=== PATIENT | female | born 1990 | race Caucasian/White ===

== ENCOUNTER 2017-05-06 16:30 | Emergency (ER) | payer MEDICAID ==
[2017-05-07 01:26] LABS: CHOLESTEROL/HDL RATIO 3.2; MAGNESIUM 1.9 mg/dL (1.8-2.4); PHOSPHOROUS 4.3 mg/dL (2.5-4.9)
[2017-05-07 01:29] LABS: T3 TOTAL 0.78 ng/mL
[2017-05-07 01:50] LABS: FREE THYROXINE INDEX 2.6 ug/dL (1.4-4.5); T4(THYROXINE) 7.1 ug/dL (4.7-13.3)
[2017-05-07 01:51] LABS: FREE T4 1.01 ng/dL (0.76-1.46)
[2017-05-07] MEDS ORDERED: CARDIZEM30 MG PO (07:18)
[2017-05-07] MEDS ORDERED: DEPAKOTE ER500 MG PO (07:18)
[2017-05-07] MEDS ORDERED: VIS25 PO (07:19)
[2017-05-07] MEDS ORDERED: SEROQUEL50 M1 PO (07:19)
[2017-05-07] MEDS ORDERED: BENZTROPINE MESY1 MG PO (07:22)
[2017-05-07] MEDS ORDERED: DEPAKOTE500 MG PO (07:23)
== END 2017-05-06 17:16 | disposition left against medical advice (07) ==
LOC: ED 16:30
PROVIDERS: Family Medicine
DX: Z53.21 Procedure and treatment not carried out due to patient leaving prior to being seen by health care provider (principal)
CPT/HCPCS: 84439; J2060

== ENCOUNTER 2017-05-06 17:16 | Inpatient (IN) | payer MEDICAID ==
[~2017-05-06] VITALS: Ht 157.5 cm; Wt 56.1 kg
[2017-05-06 18:47] LABS: BASOPHIL % 0.3 % (0-2); PLATELET COUNT 241 x10^3mcL (130-400); RED CELL DISTRIBUTION WIDTH 12.3 % (11.5-14.5)
[2017-05-06 18:52] LABS: CARBON DIOXIDE 27.5 mmol/L (21-32); CHLORIDE SERUM 104 mmol/L (98-107); CREATININE SERUM 0.7 mg/dL (0.6-1.0); GFR1 > 60 mL/min; GLUCOSE SERUM 77 mg/dL (74-106); POTASSIUM SERUM 3.9 mmol/L (3.5-5.1); SODIUM SERUM 140 mmol/L (136-145)
[2017-05-06 18:55] LABS: ALBUMIN 3.4 g/dL (3.4-5.0); ALKALINE PHOSPHATASE 66 U/L (46-116); ALT/SGPT 34 U/L (14-59); AST/SGOT 24 U/L (15-37); BILIRUBIN TOTAL 0.34 mg/dL (0.20-1.00); CHOLESTEROL 173 mg/dL (<200); TOTAL PROTEIN, SERUM 7.2 g/dL (6.4-8.2)
[2017-05-06 19:22] LABS: AMPHETAMINE QUAL UR NONE DETECTED (NEG <=1000)
[2017-05-07] MEDS ORDERED: DEPAKOTE ER500 MG PO (07:18)
[2017-05-07] MEDS ORDERED: CARDIZEM30 MG PO (07:18)
[2017-05-07] MEDS ORDERED: VIS25 PO (07:19)
[2017-05-07] MEDS ORDERED: SEROQUEL50 M1 PO (07:19)
[2017-05-07] MEDS ORDERED: BENZTROPINE MESY1 MG PO (07:22)
[2017-05-07] MEDS ORDERED: DEPAKOTE500 MG PO (07:23)
[2017-05-07 10:36] VITALS: BP 99/65
[2017-05-07 13:16] LABS: MAGNESIUM 2.1 mg/dL (1.8-2.4); PHOSPHOROUS 4.7 mg/dL (2.5-4.9)
[2017-05-07 13:20] LABS: T3 TOTAL 0.69 ng/mL
[2017-05-07 13:27] LABS: FREE T4 0.98 ng/dL (0.76-1.46); FREE THYROXINE INDEX 2.9 ug/dL (1.4-4.5); T4(THYROXINE) 7.1 ug/dL (4.7-13.3)
[2017-05-07 14:00] VITALS: BP 109/43
[2017-05-07 18:03] VITALS: BP 105/60
[2017-05-07 21:00] LABS: microscopic required? YES; urine erythrocyte 3+ (NEGATIVE)
[2017-05-07 22:01] VITALS: BP 103/60
[2017-05-08 06:03] VITALS: BP 102/58
[2017-05-08 06:19] LABS: CALCIUM 8.4 mg/dL (8.5-10.1); CARBON DIOXIDE 26.5 mmol/L (21-32); CHLORIDE SERUM 107 mmol/L (98-107); CREATININE SERUM 0.7 mg/dL (0.6-1.0); GFR1 > 60 mL/min; GLUCOSE SERUM 92 mg/dL (74-106); POTASSIUM SERUM 3.9 mmol/L (3.5-5.1); SODIUM SERUM 143 mmol/L (136-145)
[2017-05-08 10:04] VITALS: BP 106/60
[2017-05-08 21:00] VITALS: BP 111/44
[2017-05-09 06:29] VITALS: BP 118/51
[2017-05-09 06:30] LABS: CALCIUM 8.9 mg/dL (8.5-10.1); CARBON DIOXIDE 28.1 mmol/L (21-32); CHLORIDE SERUM 106 mmol/L (98-107); CREATININE SERUM 0.7 mg/dL (0.6-1.0); GFR1 > 60 mL/min; GLUCOSE SERUM 91 mg/dL (74-106); POTASSIUM SERUM 4.4 mmol/L (3.5-5.1); SODIUM SERUM 140 mmol/L (136-145)
[2017-05-09 13:53] VITALS: BP 118/70
[2017-05-09 21:02] VITALS: BP 121/69
[2017-05-10 13:01] VITALS: BP 113/68
[2017-05-10 20:42] VITALS: BP 106/64
[2017-05-10 23:57] VITALS: BP 115/73
[2017-05-11 03:54] VITALS: BP 119/48
[2017-05-11 05:33] LABS: BASOPHIL % 0.4 % (0-2); PLATELET COUNT 223 x10^3mcL (130-400); RED CELL DISTRIBUTION WIDTH 12.6 % (11.5-14.5)
[2017-05-11 05:36] LABS: CALCIUM 8.5 mg/dL (8.5-10.1); CARBON DIOXIDE 26.7 mmol/L (21-32); CHLORIDE SERUM 105 mmol/L (98-107); CREATININE SERUM 0.6 mg/dL (0.6-1.0); GFR1 > 60 mL/min; GLUCOSE SERUM 90 mg/dL (74-106); MAGNESIUM 1.7 mg/dL (1.8-2.4); POTASSIUM SERUM 3.7 mmol/L (3.5-5.1); SODIUM SERUM 138 mmol/L (136-145)
[2017-05-11 07:40] VITALS: BP 118/80
[2017-05-11 12:00] VITALS: BP 101/68
[2017-05-11 16:00] VITALS: BP 111/55
[2017-05-11 19:52] VITALS: BP 115/82
[2017-05-12] VITALS (7 sets, daily range): BP systolic 103–117; BP diastolic 59–76
[2017-05-13 03:35] VITALS: BP 106/70
[2017-05-13 08:27] VITALS: BP 108/64
[2017-05-13 11:55] VITALS: BP 105/63
[2017-05-13 16:24] VITALS: BP 114/70
[2017-05-13 20:00] VITALS: BP 102/65
[2017-05-13 23:50] VITALS: BP 105/71
[2017-05-14 03:34] VITALS: BP 117/73
[2017-05-14 07:15] VITALS: BP 122/63
[2017-05-14 11:00] VITALS: BP 118/74
[2017-05-14 15:10] VITALS: BP 123/81
[2017-05-14 19:20] VITALS: BP 116/72
[2017-05-14 23:50] VITALS: BP 109/72
[2017-05-15] VITALS (7 sets, daily range): BP systolic 117–139; BP diastolic 69–89
[2017-05-15 11:58] LABS: BASOPHIL % 0.3 % (0-2); PLATELET COUNT 319 x10^3mcL (130-400); RED CELL DISTRIBUTION WIDTH 12.4 % (11.5-14.5)
[2017-05-15 12:19] LABS: CALCIUM 8.9 mg/dL (8.5-10.1); CARBON DIOXIDE 24.8 mmol/L (21-32); CHLORIDE SERUM 104 mmol/L (98-107); CREATININE SERUM 0.7 mg/dL (0.6-1.0); GFR1 > 60 mL/min; GLUCOSE SERUM 103 mg/dL (74-106); POTASSIUM SERUM 4.1 mmol/L (3.5-5.1); SODIUM SERUM 139 mmol/L (136-145)
[2017-05-15 12:38] LABS: AMPHETAMINE QUAL UR NONE DETECTED (NEG <=1000)
[2017-05-15] MEDS ORDERED: KLO0.5 PO (13:14)
[2017-05-15] MEDS ORDERED: ABILIFY10 M2 PO (13:15)
[2017-05-15] MEDS ORDERED: GEODON20 M1 IM (13:15)
[2017-05-15] MEDS ORDERED: SERO100 PO (13:15)
[2017-05-16] VITALS (7 sets, daily range): BP systolic 109–131; BP diastolic 71–91
[2017-05-17 03:53] VITALS: BP 127/77
[2017-05-17 08:00] VITALS: BP 118/72
[2017-05-17 12:00] VITALS: BP 118/73
[2017-05-17 16:11] VITALS: BP 104/69
[2017-05-17 19:50] VITALS: BP 104/66
[2017-05-17 23:57] VITALS: BP 109/64
[2017-05-18 04:25] VITALS: BP 116/75
[2017-05-18 07:35] VITALS: BP 107/63
[2017-05-18 11:42] VITALS: BP 107/62
[2017-05-18 15:34] VITALS: BP 102/58
[2017-05-18 19:20] VITALS: BP 113/66
[2017-05-18 23:10] VITALS: BP 112/61
[2017-05-19 03:35] VITALS: BP 111/61
[2017-05-19 08:00] VITALS: BP 113/71
[2017-05-19 12:00] VITALS: BP 117/74
[2017-05-19 16:00] VITALS: BP 109/71
[2017-05-19 19:30] VITALS: BP 113/68
[2017-05-19 23:52] VITALS: BP 118/64
[2017-05-20 03:44] VITALS: BP 115/66
[2017-05-20 07:45] VITALS: BP 125/60
[2017-05-20 11:37] VITALS: BP 118/72
[2017-05-20 15:38] VITALS: BP 114/68
[2017-05-20 19:30] VITALS: BP 119/70
[2017-05-21 03:35] VITALS: BP 96/60
[2017-05-21 07:53] VITALS: BP 101/66
[2017-05-21 11:05] VITALS: BP 121/74
[2017-05-21 16:01] VITALS: BP 116/82
[2017-05-21 19:42] VITALS: BP 110/64
[2017-05-21 23:39] VITALS: BP 112/70
[2017-05-22 08:00] VITALS: BP 98/58
[2017-05-22 11:21] VITALS: BP 114/70
[2017-05-22 16:11] VITALS: BP 111/67
[2017-05-22 23:53] VITALS: BP 112/54
[2017-05-23 03:48] VITALS: BP 108/55
[2017-05-23 07:20] VITALS: BP 96/54
[2017-05-23 11:15] VITALS: BP 111/66
[2017-05-23 19:20] VITALS: BP 114/57
[2017-05-23 23:18] VITALS: BP 106/69
[2017-05-24 03:25] VITALS: BP 106/67
[2017-05-24 07:52] VITALS: BP 118/71
[2017-05-24 12:31] VITALS: BP 106/60
[2017-05-24 15:48] VITALS: BP 109/61
[2017-05-24 19:15] VITALS: BP 104/59
[2017-05-24 23:13] VITALS: BP 101/54
[2017-05-25 03:47] VITALS: BP 98/55
[2017-05-25 07:20] VITALS: BP 108/70
[2017-05-25 12:05] VITALS: BP 107/65
[2017-05-25 16:03] VITALS: BP 117/64
[2017-05-25 19:05] VITALS: BP 102/62
[2017-05-25 23:54] VITALS: BP 92/52
[2017-05-26 03:17] VITALS: BP 116/65
[2017-05-26 08:00] VITALS: BP 106/75
[2017-05-26 12:29] VITALS: BP 114/60
[2017-05-26 15:19] VITALS: BP 114/58
[2017-05-26 19:40] VITALS: BP 108/79
[2017-05-26 23:46] VITALS: BP 109/63
[2017-05-27 03:06] VITALS: BP 98/55
[2017-05-27 07:15] VITALS: BP 103/66
[2017-05-27 12:55] VITALS: BP 136/85
[2017-05-27 15:00] VITALS: BP 111/71
[2017-05-27 19:27] VITALS: BP 98/39
[2017-05-28 05:59] VITALS: BP 114/74
[2017-05-28 07:15] VITALS: BP 114/74
[2017-05-28 19:45] VITALS: BP 116/73
[2017-05-29 09:09] VITALS: BP 120/79
[2017-05-29 15:45] VITALS: BP 116/62
[2017-05-29 19:40] VITALS: BP 132/85
[2017-05-30 00:06] VITALS: BP 118/82
[2017-05-30 04:05] VITALS: BP 130/85
[2017-05-30 07:30] VITALS: BP 134/65
[2017-05-30 12:50] VITALS: BP 125/76
[2017-05-30 16:00] VITALS: BP 115/68
[2017-05-31 08:06] VITALS: BP 122/85
[2017-05-31 12:03] VITALS: BP 114/75
[2017-05-31 16:28] VITALS: BP 113/70
[2017-05-31 19:30] VITALS: BP 111/74
[2017-06-01 00:50] VITALS: BP 111/77
[2017-06-01 03:52] VITALS: BP 103/67
[2017-06-01 08:00] VITALS: BP 129/64
[2017-06-01 11:19] VITALS: BP 106/64
[2017-06-01 16:40] VITALS: BP 117/81
[2017-06-01 20:00] VITALS: BP 119/72
[2017-06-02 07:10] VITALS: BP 120/87
[2017-06-02 11:20] VITALS: BP 114/70
[2017-06-02 23:46] VITALS: BP 119/81
[2017-06-03 03:49] VITALS: BP 134/87
[2017-06-03 09:41] VITALS: BP 126/75
[2017-06-03 16:08] VITALS: BP 82/63
[2017-06-03 19:15] VITALS: BP 130/90
[2017-06-03 23:15] VITALS: BP 132/82
[2017-06-04 03:57] VITALS: BP 123/80
[2017-06-04 09:13] VITALS: Ht 157.5 cm; Wt 56.1 kg
[2017-06-04] MEDS ORDERED: COL100 PO (10:06)
[2017-06-04] MEDS ORDERED: COG1 PO (10:06)
[2017-06-04] MEDS ORDERED: BEN25 PO (10:06)
[2017-06-04] MEDS ORDERED: TYL325 PO (10:06)
[2017-06-04] MEDS ORDERED: VIS25 PO (10:06)
[2017-06-04] MEDS ORDERED: DIVALPROEX SOD500 M2 PO (10:06)
[2017-06-04 10:38] VITALS: BP 101/53
[2017-06-04 10:39] VITALS: BP 101/53
== END 2017-06-04 13:40 | disposition home or self-care (01) | DRG 750 ==
LOC: ED 17:16 → DU 21:22 → IC 21:22 → DU 05-07 08:14 → MU 05-10 10:56 → IC 05-10 20:45
PROVIDERS: Specialist; Student in an Organized Health Care Education/Training Program; ADMIT Family Medicine
DX: F25.0 Schizoaffective disorder, bipolar type (principal); N17.0 Acute kidney failure with tubular necrosis; G93.41 Metabolic encephalopathy; R45.851 Suicidal ideations; R45.1 Restlessness and agitation; G31.84 Mild cognitive impairment of uncertain or unknown etiology; E83.42 Hypomagnesemia; Z68.21 Body mass index [BMI] 21.0-21.9, adult; Z87.891 Personal history of nicotine dependence
CPT/HCPCS: 83880; 84439; G0480; J0515; J1200; J1630; J2060; J3486; J7030; Q0092; Q0163; Q0177